=== PATIENT | female | born 1975 | race Caucasian/White ===

== ENCOUNTER → 2017-04-18 | Outpatient (CLI) | payer OTHER ==
[~2017-04-18] MED LIST: GADOBUTROL 7.5 MMOL/7.5 ML VIAL INT ART ONE; IOHEXOL 300 MG/ML 50 ML VIAL. INT ART ONE; LIDOCAINE 1% Multi-Dose 20 ML VIAL. ID ONE
--- NOTE | 2017-04-18 15:11 | KCIC ---
MR arthrogram of the left shoulder Indication: Anterior glenohumeral pain. Impingement. Labral signs. Technique: Intra-articular contrast injected into the glenohumeral joint and is reported separately. Routine 4 plane sequences were obtained, including ABER positioning. Findings: Acromioclavicular joint: Very mildly degenerative. No significant undersurface mass effect. Rotator cuff: Very mild degenerative change. No significant undersurface mass effect. Subdeltoid bursa:No significant fluid or contrast accumulation. Articular cartilage: No acute defect or advanced DJD. Labrum: Small defect at the posteroinferior labrum compatible with a small tear, only seen on a single axial slice. Biceps tendon: Intact Bones: No lesion or acute fracture. Soft tissue: No acute findings. Impression: 1. Small posteroinferior labral defect, compatible with a small tear. 2. No evidence of rotator cuff tear. Electronically signed by: Vern Araujo MD (04/18/2017 3:08 PM) [facility]
--- NOTE | 2017-04-18 17:38 | KCIC ---
Fluoroscopically guided injection of the left shoulder prior to MR arthrogram 04/18/2017 CLINICAL HISTORY: Left shoulder pain and instability with multiple dislocations. TECHNIQUE: After the risks and benefits of the procedure were explained to the patient, written informed consent was obtained. The anterior aspect of the left shoulder was prepped and draped in sterile fashion. 1 percent lidocaine was used as a local anesthetic. Under fluoroscopic guidance, the anterior aspect of the left glenohumeral joint was punctured using a 22-gauge spinal needle. Intra-articular position of the needle was confirmed with 3 cc of Omnipaque 300. Following this a solution of 20 cc normal saline and 0.1 cc of Gadavist were injected into the left glenohumeral joint. Following this the needle was removed. A sterile bandage was placed over the skin puncture site. The patient tolerated the procedure well and there were no immediate complications. The patient was taken to MRI for further evaluation. The total fluoroscopic time for this study was 19 seconds. One fluoroscopic captured digital AP radiograph of the left shoulder was obtained. IMPRESSION: Technically successful fluoroscopically guided injection of the left shoulder prior to MR arthrogram as outlined above. Electronically signed by: Luis Miguel Dyer MD (04/18/2017 5:35 PM) [email or web address]
== END | disposition home or self-care (01) ==
LOC: KCIC 12:32
PROVIDERS: ATTEND Physician Assistant
DX: S43.402A Unspecified sprain of left shoulder joint, initial encounter (principal); X58.XXXA Exposure to other specified factors, initial encounter; Y93.89 Activity, other specified; Y92.89 Other specified places as the place of occurrence of the external cause; Y99.8 Other external cause status
CPT/HCPCS: 73040; 73222; A9585; Q9967